=== PATIENT | female | born 1955 | race Asian ===

== ENCOUNTER 2019-01-08 21:02 | Emergency (ER) | payer OTHER ==
[~2019-01-08] VITALS: Ht 233.7 cm; Wt 52.2 kg
[~2019-01-08 21:02] MED LIST: ATEN50 PO; ESZO3 PO; Pravachol20 MG PO
[2019-01-09 01:29] LABS: Source, Urine Catheter
[2019-01-09 01:36] LABS: Bilirubin, Urine Neg (Neg); Blood, Urine 5+ (Neg); Glucose Qualitative, Urine Neg (Neg); Ketones, Urine Neg (Neg); Leukocyte Esterase, Urine 2+ (Neg); Nitrite, Urine Neg (Neg); Protein, Urine 1+ (Neg); Urobilinogen, Urine NORM (Normal)
[2019-01-09 01:37] LABS: Appearance, Urine Clear (Clear); Color, Urine Yellow (P-Yellow)
[2019-01-09 01:42] LABS: Bacteria Mod /hpf; Red Blood Cells, Urine 0-2 /hpf (0-2); Squamous Epithelial Cells Not Seen /hpf (Few); White Blood Cells, Urine 25-50 /hpf (0-5)
[2019-01-09 01:43] LABS: Mucus Light (0-Heavy)
[2019-01-09] MEDS ORDERED: Macrobid 100 M100 MG PO (01:53)
== END 2019-01-09 02:05 | disposition home or self-care (01) ==
LOC: ER 21:02
PROVIDERS: Emergency Medicine
DX: T83.511A Infection and inflammatory reaction due to indwelling urethral catheter, initial encounter (principal); N39.0 Urinary tract infection, site not specified; B96.89 Other specified bacterial agents as the cause of diseases classified elsewhere; Z79.899 Other long term (current) drug therapy
CPT/HCPCS: 51700; 51702; 51798; 81001; 87077; 87086; 87186; 99283-25

== ENCOUNTER 2020-05-07 11:13 | Day surgery (SDC) | payer MEDICARE, OTHER | END 2020-05-07 13:03 | disposition home or self-care (01) | LOC: ORSCSDS 11:13 | PROC: 0DJD8ZZ Inspection of Lower Intestinal Tract, Via Natural or Artificial Opening Endoscopic (ICD-10-PCS; principal; 2020-05-07) | DX: Z12.11 Encounter for screening for malignant neoplasm of colon (principal); K64.8 Other hemorrhoids; K64.4 Residual hemorrhoidal skin tags; I10 Essential (primary) hypertension; E78.5 Hyperlipidemia, unspecified; Z79.899 Other long term (current) drug therapy ==